=== PATIENT | female | born 1965 | race Two or more races ===

== ENCOUNTER 2018-12-15 06:23 | Day surgery (SDC) | payer BC ==
[2018-12-15] VITALS (9 sets, daily range): BP systolic 97–111; BP diastolic 59–70
[~2018-12-15] VITALS: Ht 167.6 cm; Wt 51.7 kg
[2018-12-15] MEDS ORDERED: NKM (06:52)
[2018-12-15] MEDS ORDERED: LR 1000ml 1,000 ML IV SCH (07:00)
[2018-12-15] MEDS ORDERED: LR 1000ml ONE (07:30)
[2018-12-15] MEDS ORDERED: Propofol 200mg/20ml IV ONE (07:30)
--- NOTE | 2018-12-15 07:30 | Pre-Procedure Note/Attestation ---
Pre-Procedure Note/Attestation Complete Prior to Procedure Planned Procedure: not applicable Procedure Narrative: Colonoscopy, possible biopsy, polypectomy, hemostasis, submucosal injection Indications for Procedure Pre-Operative Diagnosis: Cancer screening Attestation I attest that I discussed the nature of the procedure; its benefits; risks and complications; and alternatives (and the risks and benefits of such alternatives ), prior to the procedure, with the patient (or the patient's legal bottling equipment sales representative). I attest that, if there was a reasonable possibility of needing a blood transfusion, the patient (or the patient's legal bottling equipment sales representative) was given the [facility] standardized written summary, pursuant to the Maxwell Yumiko Blood Safety Act ([place] Health and Safety Code # 1645, as amended). I attest that I re-evaluated the patient just prior to the surgery and that there has been no change in the patient's H&P, except as documented below: Ramona Simpson MD Dec 15, 2018 07:30
[2018-12-15] MEDS ORDERED: LR 1000ml 1,000 ML IVLG SCH (07:39)
--- NOTE | 2018-12-15 07:42 | Anethesia Preoperative Eval ---
Anesthesia Pre-op PMH/ROS General Date of Evaluation: Dec 15, 2018 Time of Evaluation: 07:20 Anesthesiologist: Olivier ASA Score: ASA 2 Mallampati Score Class I : Soft palate, uvula, fauces, pillars visible Class II: Soft palate, uvula, fauces visible Class III: Soft palate, base of uvula visible Class IV: Only hard plate visible Mallampati Classification: Class II Surgeon: Tatiana Diagnosis: Screening Surgical Procedure: Colonoscopy with biopsy Family History: no anesthesia problems Allergies: Coded Allergies: SULFA (SULFONAMIDE ANTIBIOTICS) (Verified Allergy, Severe, 12/15/18) anaphylaxis Medications: see eMAR Patient NPO?: Yes NPO Date: Dec 13, 2018 NPO Time: 19:00 Past Medical History Cardiovascular: Denies: HTN, CAD, NM, valve dz, arrhythmia, other Pulmonary: Denies: asthma, COPD, JOSE RAMON, other Gastrointestinal/Genitourinary: Denies: GERD, CRI, ESRD, other Neurologic/Psychiatric: Denies: dementia, CVA, depression/anxiety, TIA, other Endocrine: Denies: DM, hypothyroidism, steroids, other HEENT: Denies: cataract (L), cataract (R), glaucoma, [place] (L), [place] (R), other Hematology/Immune: Denies: anemia, DVT, bleeding disorder, other Musculoskeletal/Integumentary: Denies: OA, RA, DJD, DDD, edema, other PMH Narrative: Denies PSxH Narrative: Colonoscopy Anesthesia Pre-op Phys. Exam Physician Exam Last Vital Signs Date Time Temp Pulse Resp B/P (MAP) Pulse Ox O2 Delivery O2 Flow Rate FiO2 12/15/18 06:45 Room Air 12/15/18 06:45 97.2 78 20 109/70 98 Constitutional: NAD Neurologic: CN 2-12 intact Cardiovascular: RRR, no M/R/G Respiratory: CTA Gastrointestinal: S/NT/ND Airway Exam Mallampati Score: Class II MO: full ROM: full Teeth: intact Anesthesia Pre-op A/P Risk Assessment & Plan Assessment: Healthy female for colonoscopy Plan: GA, TIVA Pre-Antibiotics Drug: None Maxwell Aguayo MD Dec 15, 2018 07:42
--- NOTE | 2018-12-15 07:43 | Immediate Post-Op Evaluation ---
Immediate Post-Op Evalulation Immediate Post-Op Evalulation Procedure: Colonoscopy Date of Evaluation: Dec 15, 2018 Time of Evaluation: 08:35 IV Fluids: 500 Blood Pressure Systolic: 99 Blood Pressure Diastolic: 68 Pulse Rate: 72 Respiratory Rate: 20 O2 Sat by Pulse Oximetry: 100 Temperature (Fahrenheit): 98.2 Pain Score (1-10): 0 Nausea: No Vomiting: No Complications No complication Patient Status: awake, patent, none Hydration Status: adequate Drug: None Maxwell Aguayo MD Dec 15, 2018 07:43
[2018-12-15] MEDS ORDERED: fentaNYL 100 mcg/2 mL IV PRN (07:45)
--- NOTE | 2018-12-15 08:27 | Endoscopy Procedure Note ---
Endoscopy Procedure Note General Procedures Performed: colonoscopy Operative Findings/Diagnosis: 5 polyps Specimen: yes Pt Tolerated Procedure Well: Yes Estimated Blood Loss: minimal Anesthesia Anesthesiologist: Dr Aguayo Anesthesia: moderate sedation Medications Medication Given: see anesthesia record Inserted Devices Implant(s) used?: No Quality Quality of Bowel Preparation: Excellent Did scope reach the cecum?: Yes Was there any complications?: No GI Core Measures 50 yrs or older w/o bx or poly: No 10yrs. F/U not recommended: Yes If not recommended, why?: Above average risk Ramona Simpson MD Dec 15, 2018 08:27
--- NOTE | 2018-12-15 08:35 | 48 Hour Post Anesthesia Eval ---
Post Anesthesia Evaluation Procedure: Colonoscopy Date of Evaluation: Dec 15, 2018 Time of Evaluation: 09:00 Blood Pressure Systolic: 108 0: 68 Pulse Rate: 72 Respiratory Rate: 18 O2 Sat by Pulse Oximetry: 100 Airway: patent Nausea: No Vomiting: No Pain Intensity: 0 Hydration Status: adequate Cardiopulmonary Status: Stable Mental Status/LOC: patient returned to baseline Follow-up Care/Observations: As per surgery Post-Anesthesia Complications: No anesthetic complication Follow-up care needed: N/A Maxwell Aguayo MD Dec 15, 2018 08:35
--- NOTE | 2018-12-15 10:45 | Operative Note - Dictated ---
DATE OF OPERATION: 12/15/2018 PREPROCEDURE DIAGNOSIS: Cancer screening. POSTPROCEDURE DIAGNOSIS: Polyps x5 (sigmoid colon x4, rectum x1), moderate internal hemorrhoids. PROCEDURE: Colonoscopy with hot snare biopsy. SURGEON: Ramona Simpson M.D. ANESTHESIOLOGIST: Maxwell Aguayo M.D. ANESTHESIA: Propofol sedation. INDICATION FOR PROCEDURE: The patient is a 53-year-old female, whose last colonoscopy was in October 2016, which the patient reportedly was not able to be completed secondary to redundancy of the colon. The patient requested that I do her next colonoscopy in an attempt to perform a completion of the colonoscopy. In light of the patient's findings, it was determined at this time to proceed with a colonoscopy using anesthesia sedation for maximal relaxation and anticipation of a prolonged procedure. DESCRIPTION OF PROCEDURE: Upon consent of the patient, the patient brought to the procedure room, placed in a left lateral decubitus position. Once adequate sedation was established with propofol drip, digital rectal exam was performed, which showed some moderately small internal hemorrhoids. An Olympus colonoscope was then advanced through the anus into the rectum. The descending colon, splenic flexure, transverse colon, hepatic flexure, and ascending colon were visualized. The cecum was reached and ileocecal valve and appendiceal orifice were identified. The patient's prep was noted to be good. The terminal ileum was intubated and was noted to be normal. Of note, the sigmoid colon was noted to be quite redundant and required manipulation of the colon in the pelvis with good anesthesia. The colonoscope was slowly withdrawn. There was noted to be five benign-appearing polyps with four in the sigmoid colon and one in the rectum. Two of the most distal sigmoid polyps were pedunculated and raised and these were hot snared using electrocautery. The postpolypectomy sites were noted to have no active bleeding. All polyps were sent off the field as separate specimens. Upon reaching the rectum, the colonoscope was retroflexed and there was noted to be moderately small internal hemorrhoids. The scope was straightened, air was evacuated from the rectum, the colonoscope was removed. The patient was awakened from anesthesia, brought to postanesthesia recovery room in stable condition. There were no complications. IMPRESSION: Polyps x5, moderately small internal hemorrhoids. PLAN: Repeat colonoscopy in one year, continue high-fiber diet, yearly follow up. Ramona Simpson M.D. DR: TRAVIS JOB#: [id number] CC: Ramona Simpson M.D.; Fax#: [phone] Shirley Godoy M.D. [facility]
== END 2018-12-15 09:40 | disposition home or self-care (01) ==
LOC: GAS 06:23
DX: Z12.11 Encounter for screening for malignant neoplasm of colon (principal); K62.1 Rectal polyp; K63.5 Polyp of colon; D12.5 Benign neoplasm of sigmoid colon; K64.8 Other hemorrhoids; Z88.2 Allergy status to sulfonamides
CPT/HCPCS: 45385; J2704; 94003; 94150